=== PATIENT | male | born 1970 | race Caucasian/White ===

== ENCOUNTER 2017-06-19 09:42 | Outpatient (CLI) | payer OTHER ==
[2016-04-29 07:46] VITALS: BP 177/85
[2017-06-19 10:31] LABS: eGFR (African) > 60; eGFR (Non-African) > 60
== END 2017-06-19 09:43 ==
LOC: LAB 09:42
PROVIDERS: ATTEND Family Medicine
DX: E11.9 Type 2 diabetes mellitus without complications (principal); I10 Essential (primary) hypertension
CPT/HCPCS: 36415; 80053; 80061; 82043; 83036

== ENCOUNTER 2017-10-15 09:05 | Outpatient (CLI) | payer OTHER ==
[2016-04-29 07:46] VITALS: BP 177/85
== END 2017-10-15 10:00 ==
LOC: LAB 09:05
PROVIDERS: ATTEND Family Medicine
DX: E11.9 Type 2 diabetes mellitus without complications (principal)
CPT/HCPCS: 36415; 83036

== ENCOUNTER 2018-02-12 11:05 | Outpatient (CLI) | payer OTHER ==
[2016-04-29 07:46] VITALS: BP 177/85
[2018-02-12 12:31] LABS: eGFR (African) > 60; eGFR (Non-African) > 60
== END 2018-02-12 11:15 ==
LOC: LAB 11:05
PROVIDERS: ATTEND Family Medicine
DX: E11.9 Type 2 diabetes mellitus without complications (principal); I10 Essential (primary) hypertension
CPT/HCPCS: 36415; 80053; 80061; 83036

== ENCOUNTER 2018-06-15 09:30 | Outpatient (CLI) | payer OTHER ==
[2016-04-29 07:46] VITALS: BP 177/85
[2018-06-15 10:21] LABS: eGFR (African) > 60; eGFR (Non-African) > 60
== END 2018-06-15 10:43 ==
LOC: LAB 09:30
PROVIDERS: ATTEND Family Medicine
DX: E11.9 Type 2 diabetes mellitus without complications (principal); I10 Essential (primary) hypertension
CPT/HCPCS: 36415; 80053; 82043; 83036

== ENCOUNTER 2018-09-01 14:56 | Emergency (ER) | payer OTHER ==
[2018-09-01] MEDS: BACLOFEN 10 MG TABLET PO ONE (15:50)
[2018-09-01 15:57] LABS: eGFR (Non-African) > 60
--- NOTE | 2018-09-01 16:35 | ED Physician Documentation ---
General Adult - HPI Stated Complaint: Hiccups/belching for 2 days Chief Complaint: Cough/ Upper Respiratory (Hiccups) Additional Information: Patient presents to ED with a 3 day history of hiccups with associated belching. He denies any other complaints. There are no contributing or alleviating factors. Denies chest pain or shortness of breath. Onset: days ago (3) Timing: still present Severity: moderate, severe Further Comments: no - ROS CONST: denies: no problems, fever, sweating, recent illness, weakness, weight loss, chills, other EYES/ENT: denies: sore throat, nasal drainage, nasal congestion CVS/RESP: denies: chest pain, shortness of breath, cough GI/: denies: abdominal pain MS/SKIN/LYMPH: none NEURO/PSYCH: denies: headache, dizziness - PAST HX Past History: none Other History: diabetes Type 2 Surgeries/Procedures: none Allergies/Adverse Reactions: Allergies Allergy/AdvReac Type Severity Reaction Status Date / Time No Known Allergies Allergy Verified 09/01/18 15:17 Home Medications: Ambulatory Orders Medication Instructions Recorded Benzonatate [Tessalon] 100 mg PO TID PRN #30 capsule 04/29/16 Sitagliptin Phosphate [Januvia] 100 mg PO DAILY 04/29/16 Baclofen 10 mg PO Q8 PRN #30 tablet 09/01/18 - SOCIAL HX Smoking History: non-smoker Alcohol Use: none Drug Use: none - FAMILY HX Family History: No - VITAL SIGNS Vital Signs: Vital Signs Temp Pulse Resp BP Pulse Ox 97.6 F 72 18 156/87 96 09/01/18 14:56 09/01/18 14:56 09/01/18 14:56 09/01/18 14:56 09/01/18 14:56 - REVIEWED ASSESSMENTS Nursing Assessment Reviewed: Yes Vitals Reviewed: Yes Progress - Results/Orders Results/Orders: Examination: PA and lateral chest. History: Evaluate lung rmoo. HICCUPS X3 DAYS (Hx) Comparison exam: None available. Findings: PA and lateral views of the chest demonstrates a normal cardiac and mediastinal silhouette. Elevated right hemidiaphragm. No focal infiltrate. No blunting of the costophrenic margins. Osseous structures are appropriate for age. Impression: No acute pulmonary process. Electronically signed on Sep 01, 2018 4:00:32 PM CDT by: Antonio King - Progress Progress: 1439 Patient states his hiccups are gone now. Baclofen given earlier. - EKG/XRAY/CT EKG: NSR ED Results Lab/Radiology - Lab Results Lab Results: Lab Results 09/01/18 09/01/18 Unknown Unknown Sodium 131 mmol/L L mmol/L (136-145) Potassium 3.5 mmol/L mmol/L (3.5-5.1) Chloride 91 mmol/L L mmol/L (98-107) Carbon Dioxide 29 mmol/L mmol/L (22-30) BUN 10 mg/dL mg/dL (9-20) Creatinine 0.80 mg/dL mg/dL (0.66-1.25) Estimated Creat Clear 144 Est GFR ( Amer) > 60 (60 - ) Est GFR (Non-Af Amer) > 60 (60 - ) Glucose 151 mg/dL H mg/dL (74-106) Calcium 9.0 mg/dL mg/dL (8.4-10.2) Total Bilirubin 0.6 mg/dL mg/dL (0.2-1.3) AST 35 U/L U/L (15-46) ALT 55 U/L U/L (13-69) Alkaline Phosphatase 58 U/L U/L (38-126) Troponin I < 0.03 ng/mL L ng/mL (0.03-0.06) Total Protein 7.7 g/dL g/dL (6.3-8.2) Albumin 4.3 g/dL g/dL (3.5-5.0) - Orders Orders: ED Orders Category Date Time Status CHEST 2VIEW [RAD] Stat Exams 09/01/18 Taken CBC REF Stat Lab 09/01/18 Received CMP Routine Lab 09/01/18 Completed TROPONIN I (cTnI) Stat Lab 09/01/18 Completed Baclofen [Lioresal] Med 09/01/18 15:21 Discontinued 10 mg PO NOW ONE EKG WITH COMPARISON Stat Ther 09/01/18 Completed General Adult Physical Exam - PHYSICAL EXAM GENERAL APPEARANCE: no distress EENT: eye inspection normal NECK: normal inspection RESPIRATORY: no resp distress, breath sounds normal CVS: reg rate & rhythm, heart sounds normal ABDOMEN: soft, normal bowel sounds, no distension, non-tender BACK: no CVA tenderness SKIN: normal color, diaphoresis EXTREMITIES: non-tender, no edema NEURO: oriented X3 Discharge Clincal Impression: Hiccups Prescriptions: Baclofen 10 mg PO Q8 PRN #30 tablet PRN Reason: as needed for hiccups Referrals: Sylvester Henson MD [Primary Care Provider] - 2 Days Condition: Good Disposition: 01 HOME, SELF-CARE Decision to Admit: NO Date of Decison to Admit: 09/01/18 Decision Time: 17:11
--- NOTE | 2018-09-01 16:43 | Diagnostic Imaging Report ---
GRISELDA PIERCE [facility] [address] [facility] [address] [address] Report Submission Date: Sep 01, 2018 4:00:32 PM CDT Patient Study Name: DILIP KEY Date: Sep 01, 2018 3:39:12 PM CDT Modality Type: DX Gender: M Description: CHEST : 68 Institution: [facility] Physician: GRISELDA PIERCE Examination: PA and lateral chest. History: Evaluate lung romo. HICCUPS X3 DAYS (Hx) Comparison exam: None available. Findings: PA and lateral views of the chest demonstrates a normal cardiac and mediastinal silhouette. Elevated right hemidiaphragm. No focal infiltrate. No blunting of the costophrenic margins. Osseous structures are appropriate for age. Impression: No acute pulmonary process. Electronically signed on Sep 01, 2018 4:00:32 PM CDT by: Antonio BRAMBILA
[2018-09-01 17:09] LABS: BASO % 0.6 % (0.0-1.5); EOS % 2.1 % (0.0-6.8); LYMPH ABS # 2.94 thou/uL (0.60-4.00); MCH. 28.6 pg (28.0-34.0); MONOCYTE % 4.1 % (0.0-11.0); MONOCYTE ABS # 0.37 thou/uL (0.00-0.90); PLATELET COUNT 328 thou/uL (130-400)
[2018-09-01 17:26] VITALS: BP 148/72
== END 2018-09-01 17:15 | disposition home or self-care (01) ==
LOC: ED 14:56
DX: R06.6 Hiccough (principal)
CPT/HCPCS: 71046; 80053; 84484; 85025

== ENCOUNTER 2018-10-15 15:55 | Outpatient (CLI) | payer OTHER | END 2018-10-15 16:03 | disposition home or self-care (01) | LOC: LABRHC 15:55 | PROVIDERS: ATTEND Family Medicine | DX: E11.9 Type 2 diabetes mellitus without complications (principal); I10 Essential (primary) hypertension | CPT/HCPCS: 80061; 83036 ==

== ENCOUNTER 2019-04-15 08:45 | Outpatient (CLI) | payer MEDICARE, OTHER | END 2019-04-15 08:47 | LOC: LAB 08:45 | PROVIDERS: ATTEND Family Medicine | DX: E11.9 Type 2 diabetes mellitus without complications (principal); I10 Essential (primary) hypertension | CPT/HCPCS: 36415; 80053; 82043; 83036 ==

== ENCOUNTER 2019-10-20 08:58 | Outpatient (CLI) | payer MEDICARE, OTHER ==
[2019-10-20 10:15] LABS: eGFR (Non-African) > 60
[2019-10-20 10:46] LABS: A1C 6.5 % (<5.7)
== END 2019-10-20 09:03 ==
LOC: LAB 08:58
PROVIDERS: ATTEND Family Medicine
DX: E11.9 Type 2 diabetes mellitus without complications (principal); I10 Essential (primary) hypertension
CPT/HCPCS: 36415; 80053; 83036

== ENCOUNTER 2019-11-10 15:00 | Emergency (ER) | payer MEDICARE, OTHER ==
[2019-11-10 15:25] VITALS: BP 183/88
--- NOTE | 2019-11-10 15:31 | ED Physician Documentation ---
Low Back Pain - HISTORIAN Historian: patient - HPI Stated Complaint: Lower back pain Chief Complaint: Low Back Pain/ Injury History: back pain Onset: days ago Duration: continues in ED Recent Injury: No Other Injuries: back (low ) Severity: mild (/10) Quality: dull Associated Symptoms: denies: fever, chills, sweating, constipation, incontinence, nausea, vomiting, problems urinating, difficulty walking, light- headedness, dizziness, numbness, weakness Worsened By:: supine Further Comments: yes (he is here for a complaint of pain x 2 weeks without specific injury - lower back. He denies any loss of bowel or bladder. He has not tried any OTC meds for pain at this point. He has had pain in his low back before. This has not improved after approx two weeks. He states the pain is worse when he tries to get out of the bath tub. No pain with urine) - ROS CONST: no problems - PAST HX Past History: back pain. denies: back injury Surgeries/Procedures: none Immunizations: UTD Allergies/Adverse Reactions: Allergies Allergy/AdvReac Type Severity Reaction Status Date / Time No Known Drug Allergies Allergy Verified 11/10/19 15:20 Home Medications: Ambulatory Orders Medication Instructions Recorded amLODIPine BESYLATE [Norvasc] 1 tab PO DAILY 11/10/19 - SOCIAL HX Smoking History: non-smoker Alcohol Use: none Drug Use: none - FAMILY HX Family History: none - VITAL SIGNS Vital Signs: Vital Signs Temp Pulse Resp BP Pulse Ox 83 16 183/88 96 11/10/19 15:10 11/10/19 15:10 11/10/19 15:10 11/10/19 15:10 - REVIEWED ASSESSMENTS Nursing Assessment Reviewed: Yes Vitals Reviewed: Yes Progress - Progress Progress: 1550: discussed results and plan DG ED Results Lab/Radiology - Orders Orders: ED Orders Category Date Time Status LUMBAR SPINE XR 2 OR 3 VIEWS [L SPINE 2 OR 3 VIEWS] [ Exams 11/10/19 Completed RAD] Stat Ketorolac Tromethamine [Toradol] Med 11/10/19 15:53 Discontinued 60 mg IM NOW ONE Low Back Pain/Injury - Physical Exam General Appearance: no acute distress, alert EENT: eye inspection normal, ENT inspection normal, pharynx normal, no signs of dehydration Neck: non-tender Resp/CVS: chest non-tender, breath sounds nml, heart sounds nml, no resp. distress, lungs clear, reg. rate & rhythm Abdomen: non-tender Back: non-tender, other (mild midline tenderness with deep palpation ) Straight Leg Raising: Negative Left, Negative Right Neuro/Psych: oriented x3 Skin: warm/dry Extremities: non-tender, normal range of motion, no evidence of injury Discharge Clincal Impression: Low back pain Qualifiers: Chronicity: acute Back pain laterality: unspecified Sciatica presence: without sciatica Qualified Code(s): M54.5 - Low back pain Referrals: Sylvester Henson MD [Primary Care Provider] - 2 Days Condition: Stable Disposition: 01 HOME, SELF-CARE Decision to Admit: NO Date of Decison to Admit: 11/10/19 Decision Time: 15:58
--- NOTE | 2019-11-10 15:39 | Diagnostic Imaging Report ---
PATIENT MR#: [id number] PATIENT PATIENT NAME: DILIP KEY DATE OF : 1970 REFERRING PHYSICIAN: Nestor Stevens EXAM DATE: 11/10/2019 ACCESSION NUMBER: [id number] EXAM DESCRIPTION: L SPINE 2 OR 3 VIEWS Exam: Lumbar spine. History: Low back pain. AP and lateral view of the lumbar spine are submitted. A grade 2 spondylolisthesis with associated spondylolysis at L5-S1 level is noted. The vertebral bod y heights are adequately maintained. Endplate sclerosis and spurring throughout the remainder of the lumbar spine is noted. Impression: Grade 2 spondylolisthesis with associated spondylolysis at L5-S1 level. Multilevel degenerative disc disease. Read by: Dr. Greg Will Transcribed by: Transcribed Date: Electronically signed by: Dr. Greg Will Date signed: 11/10/2019 3:38:50 PM
[2019-11-10] MEDS ORDERED: KETOROLAC TROMETHAMINE 60 MG/2 ML VIAL IM ONE (15:53)
== END 2019-11-10 16:00 | disposition home or self-care (01) ==
LOC: ED 15:00
DX: M54.5 Low back pain (principal)
CPT/HCPCS: 72100; 96372; 99282; 99284; J1885